=== PATIENT | male | born 1950 ===

== ENCOUNTER → 2021-01-19 10:41 | Outpatient (CLI) | payer OTHER | END | disposition home or self-care (01) | LOC: LAB 10:41 | PROVIDERS: ATTEND Surgery | DX: R97.20 Elevated prostate specific antigen [PSA] (principal) ==

== ENCOUNTER 2021-01-26 07:30 | Outpatient (CLI) | payer OTHER | END 2021-01-26 07:45 | disposition home or self-care (01) | LOC: SONOGRAMA 07:30 | PROVIDERS: ATTEND Surgery | DX: C61 Malignant neoplasm of prostate (principal); D12.9 Benign neoplasm of anus and anal canal; R97.20 Elevated prostate specific antigen [PSA] ==